=== PATIENT | female | born 1940 | race Caucasian/White ===

== ENCOUNTER 2025-08-30 10:05 | Outpatient (AMB) | payer MEDICARE, SELFPAY ==
--- NOTE | 2025-08-30 10:06 | A.PHYSOV ---
Vital Signs 08/30/25 10:10 Height 5 ft Weight 115 lb BMI 22.5 Intake Visit Reasons: left shoulder injection Intake Note: Patient is a 84 year old female here today for a left shoulder injection. [employer] Required: No Allergies nitrofurantoin (From Macrobid) Allergy (Unknown, Verified 08/30/25 10:07) unknown pneumococcal 7-valent conjugate to Allergy (Unknown, Verified 08/30/25 10:07) Unknown acetaminophen (From Percocet) Adverse Reaction (Unknown, Verified 08/30/25 10:07) Unknown oxycodone (From Percocet) Adverse Reaction (Unknown, Verified 08/30/25 10:07) Unknown [facility] Surgical History History of knee replacement History of carpal tunnel surgery History of back surgery History of hip replacement Social History Alcohol intake: current Alcohol intake frequency: does not drink Patient Tobacco Use Status: Never used Tobacco Current occupational status: retired Physical Exam Vital Signs: BMI result Body Mass Index 22.5 Office Procedures AMB Shoulder Injection AMB Shoulder Injection Procedure Details: Left Subacromial injection Procedure: The patient was educated about risks, complications and benefits including but not limited to increased serum glucose, infection, nerve damage, bleeding, tendon/ligament damage and pain. We agree with a subacromial injection is the next best step in the treatment plan. Verbal consent was obtained. Using aseptic technique, the skin was cleansed with Betadine. Ethyl chloride was used to desensitize the skin. Using a posterior approach, 40 mg of Kenalog and 3 mL 2% lidocaine were injected using a 25-gauge inch and a half needle into the subacromial space. The patient tolerated the procedure well without immediate complication. Postinjection instructions were given. Shoulder Injection - : Left All charges added?: Procedure code (CPT) selection complete Office Meds Kenalog 40 mg/mL suspension for injection Performing Provider: MARY Crockett Performing Location: [facility] Administered by: MARY Crockett on 08/30/25 10:33 Dose Route Admin Location Dispensed Lot Number Expiration Date [facility] Clinical Courier 40 mg intrabursal 1 mL [id number] [employer] Total Dispensed Waste 1 mL 0 % lidocaine (PF) 20 mg/mL (2 %) injection solution Performing Provider: MARY Crockett Performing Location: [facility] [place] [facility] Administered by: MARY Crockett on 08/30/25 10:33 Dose Route Admin Location Dispensed Lot Number Expiration Date [employer] Clinical Courier 60 mg intrabursal 5 mL [id number] [employer] Total Dispensed Waste 5 mL 40 % Assessment & Plan Assessment & Plan (1) Impingement of left shoulder: Code(s): M25.812 - Other specified joint disorders, left shoulder Category: Medical Plan Ms. Schroeder is a 84-year-old female seen in evaluation today for right shoulder impingement. Today she consented to subacromial injection. She was given post-injection instructions, recommend: Moist heat compresses for 15 minutes 5 times daily. Recommend avoiding repetitive overhead activities. Continue rotator cuff strengthening. Follow-up with our office as needed. Thank you for allowing me to participate in the care of your patient. Orders: Orders AMB Shoulder Injection Today M25.812 - Other specified joint disorders, left shoulder Coding Level of Care Code Procedure Only Diagnoses Impingement of left shoulder M25.812 CPT Codes AMB Shoulder Injection - Hip/Bursa Injection - 95687: Left ([id number])
[2025-08-30 10:10] VITALS: BMI 22.5
== END 2025-08-30 10:31 | disposition home or self-care (01) ==
LOC: HO.HPHYS 10:05
PROVIDERS: PCP Internal Medicine; Visit Provider Physician Assistant
DX: M25.812 Other specified joint disorders, left shoulder (principal)
CPT/HCPCS: 20610

== ENCOUNTER → 2025-08-30 10:05 | Outpatient (BNVA) | payer MEDICARE, SELFPAY | PROVIDERS: PCP Internal Medicine; Visit Provider Physician Assistant | DX: M25.812 Other specified joint disorders, left shoulder (principal) | CPT/HCPCS: 20610; J2003; J3301 ==